=== PATIENT | female | born 1970 | race Caucasian/White ===

== ENCOUNTER 2017-01-17 18:07 | Emergency (ER) | payer SELFPAY ==
[~2017-01-17] VITALS: Ht 165.1 cm; Wt 72.7 kg
[2017-01-17] MEDS ORDERED: DIAZEPAM 2 MG TABLET PO ONE (19:15)
[2017-01-17] MEDS ORDERED: IBUPROFEN 800 MG TABLET PO ONE (19:15)
[2017-01-17 20:35] VITALS: BP 138/88
== END 2017-01-17 20:47 | disposition home or self-care (01) ==
LOC: EMS 18:12
DX: M62.838 Other muscle spasm (principal); V49.50XA Passenger injured in collision with unspecified motor vehicles in traffic accident, initial encounter; Y93.89 Activity, other specified; Y92.89 Other specified places as the place of occurrence of the external cause; Y99.8 Other external cause status
CPT/HCPCS: 71020; 99284